=== PATIENT | female | born 2005 | race Hispanic/Latino ===

== ENCOUNTER → 2025-09-21 | Outpatient (CLI) | payer BC ==
[~2025-09-21] MED LIST: IOHEXOL-350 75 ML VIAL IV ONE
--- NOTE | 2025-09-21 18:22 | HMCIMG ---
EXAM: CT Abdomen and Pelvis with and without IV contrast CLINICAL HISTORY: Lower abdominal pain, unspecified TECHNIQUE: Axial computed tomography images of the abdomen and pelvis with and without intravenous contrast. CONTRAST: with and without intravenous contrast. COMPARISON: None provided. FINDINGS: LUNG BASES: The lung bases appear clear. No pleural effusions are seen. LIVER: The liver is enlarged in size. The right hepatic lobe measures up to 17.5 cm. GALLBLADDER AND BILE DUCTS: The gallbladder appears within normal limits. No radiopaque gallstones are seen. No biliary ductal dilatation is evident. PANCREAS: Unremarkable. SPLEEN: Unremarkable. ADRENAL GLANDS: Unremarkable. KIDNEYS, URETERS, AND BLADDER: The kidneys appear within normal limits. There is no hydronephrosis or hydroureter. No urinary calculi are seen. STOMACH AND BOWEL: Unremarkable appearance of the stomach and bowel. No evidence of bowel obstruction. No evidence suggesting enteritis or colitis. APPENDIX: Normal appendix. PERITONEUM: Trace pelvic free fluid. No free air. LYMPH NODES: No lymphadenopathy is evident. REPRODUCTIVE: 2.4 x 1.6 cm cyst in the left ovary. VASCULATURE: No evidence of abdominal aortic aneurysm. BONES: No aggressive appearing osseous lesion. No acute osseous pathology evident. IMPRESSION: 1. Hepatomegaly with right hepatic lobe measuring up to 17.5 cm. 2. 2.4 x 1.6 cm cyst in the left ovary. Trace pelvic free fluid. If indicated, further evaluation with ultrasound can be performed. 3. No bowel obstruction or inflammation. Normal appendix. 4. Normal kidneys. No hydronephrosis. /[place]
== END | disposition home or self-care (01) ==
LOC: RAH 10:53
PROVIDERS: ATTEND Internal Medicine Gastroenterology
DX: K76.0 Fatty (change of) liver, not elsewhere classified (principal); N83.202 Unspecified ovarian cyst, left side; R16.0 Hepatomegaly, not elsewhere classified; R10.30 Lower abdominal pain, unspecified
CPT/HCPCS: 74178; Q9967